=== PATIENT | female | born 1935 | race Caucasian/White ===

== ENCOUNTER 2020-03-27 18:17 | Inpatient (IN) ==
[2020-03-27] MEDS ORDERED: DILTIAZEM 50 MG/10 ML VIAL IV STA ×2 (18:37→19:22)
[2020-03-27] MEDS ORDERED: methylPREDNISolone SOD SUC 125 MG/2 ML VIAL IV STA (18:37)
[2020-03-27] MEDS ORDERED: ONDANSETRON 4 MG/2 ML VIAL IV STA (18:37)
[2020-03-27 18:42] LABS: Basophils % 0.3 % (0.0-0.8); Hematocrit 33.8 VOL% (35.7-47.0); Hemoglobin 11.2 GM/DL (12.0-16.0); Immature Granulocytes % 0.3 %; Immature Granulocytes Absolute 0.03 #; Lymphocytes # 2.1 10*3/uL (1.4-4.0); Lymphocytes % 23.7 % (21.3-54.2); Mean Corpuscular HGB Conc 33.1 GM/DL (32-36); Mean Corpuscular Volume 95.2 FL (87-102); Mean Platelet Volume 9.9 FL (9.6-12.0); Monocytes % 4.8 % (1.7-12.7); Neutrophils % 70.9 % (38.7-73.9); Platelet Count 340 T/CUMM (130-400); Red Blood Count 3.55 MC/CUMM (3.8-5.5); White Blood Count 8.8 T/CUMM (4-12)
[2020-03-27 18:53] LABS: INR 1.1; PT Patient Result 11.3 SECS (9.8-11.9); Partial Thromboplastin Time 28.9 SECS (23.9-33.8)
[2020-03-27] MEDS ORDERED: dilTIAZem Drip 125 MG/125 ML PREMIX IV SCH (19:00)
[2020-03-27] MEDS ORDERED: FUROSEMIDE 40 MG/4 ML VIAL IV STA (19:15)
[2020-03-27 19:24] LABS: Albumin 3.7 G/DL (3.4-5.0); Calcium 8.7 MG/DL (8.5-10.1); Osmolality,Calculated 283.4 MOS/KG (273-304); Total Protein 7.3 G/DL (6.4-8.3)
[2020-03-27 19:41] LABS: Bacteria,Urine Occasional /HPF (Few); Bilirubin,Urine Negative (Negative); Blood, Urine Negative (Negative); Glucose,Urine (UA) Negative (Negative); Hyaline Casts,Urine 1 /LPF (0-3); Ketones,Urine Negative (Negative); Nitrite,Urine Negative (Negative); Protein,Urine Negative; RBC,Urine 2 /HPF (0-4); Squamous Epithelial Cell,Urine Occasional /HPF (0-10); Urine Appearance CLEAR (Clear); Urine Color Straw (Yellow); Urine Specific Gravity 1.005 (1.001-1.035); Urine Urobilinogen < 2.0 EU/DL (0.2-1.0); WBC,Urine 4 /HPF (0-6)
[2020-03-27] MEDS ORDERED: cefTRIAXone 1,000 MG in SODIUM CHLORIDE 0.9% 100 ML IV STA (19:42)
[2020-03-27] MEDS ORDERED: METOPROLOL TARTRATE 5 MG/5 ML VIAL IV STA (20:21)
[2020-03-27] MEDS ORDERED: DEXTROSE 50% 25 GM/50 ML VIAL IV PRN (20:53)
[2020-03-27] MEDS ORDERED: hydrALAZINE 20 MG/1 ML VIAL IV PRN (20:53)
[2020-03-27] MEDS ORDERED: guaiFENesin/DM ER 600-30 MG TABLET PO PRN (20:53)
[2020-03-27] MEDS ORDERED: MORPHINE 4 MG/1 ML VIAL IV PRN (20:53)
[2020-03-27] MEDS ORDERED: NICOTINE 21 MG/24 HR PATCH TRANSDERM PRN (20:53)
[2020-03-27] MEDS ORDERED: ONDANSETRON 4 MG/2 ML VIAL IV PRN (20:53)
[2020-03-27] MEDS ORDERED: GLUCAGON 1 MG VIAL IM PRN (20:53)
[2020-03-27] MEDS ORDERED: ALUMINUM/MAGNES/SIMETH MAX STR 30 ML UDCUP PO PRN (20:53)
[2020-03-27] MEDS ORDERED: diphenhydrAMINE CAP 25 MG CAPSULE PO PRN (20:53)
[2020-03-27] MEDS ORDERED: ACETAMINOPHEN 325 MG TABLET PO PRN (20:53)
[2020-03-27 21:22] LABS: Risk Ratio 2.69; Thyroid Stimulating Hormone 0.094 uIU/ml (0.358-3.74); VLDL CHOLESTEROL 28.2 MG/DL
[2020-03-27] MEDS: INSULIN REGULAR 100 UNIT/ML SUBCUT SCH (23:05)
[2020-03-28] MEDS ORDERED: dilTIAZem Drip 125 MG/125 ML PREMIX IV SCH ×2 (01:30)
[2020-03-28] MEDS: ALBUTEROL/IPRATROPIUM 3 ML NEB RESP TX SCH ×2 (02:00→07:15)
[2020-03-28] MEDS: dilTIAZem Drip 125 MG/125 ML PREMIX IV SCH (04:41)
[2020-03-28 04:55] LABS: Basophils % 0.1 % (0.0-0.8); Hemoglobin 10.7 GM/DL (12.0-16.0); Immature Granulocytes % 0.5 %; Immature Granulocytes Absolute 0.05 #; Lymphocytes # 0.6 10*3/uL (1.4-4.0); Lymphocytes % 6.3 % (21.3-54.2); Mean Corpuscular HGB Conc 33.4 GM/DL (32-36); Mean Corpuscular Volume 93.6 FL (87-102); Mean Platelet Volume 10.5 FL (9.6-12.0); Monocytes % 0.8 % (1.7-12.7); Neutrophils % 92.3 % (38.7-73.9); Platelet Count 323 T/CUMM (130-400); Red Blood Count 3.42 MC/CUMM (3.8-5.5); Red Cell Distribution Width 13.2 % (9.3-17.3); White Blood Count 9.5 T/CUMM (4-12)
[2020-03-28 05:08] LABS: Albumin 3.6 G/DL (3.4-5.0); Bilirubin,Total 0.8 MG/DL (0.2-1.0); Calcium 8.9 MG/DL (8.5-10.1); Osmolality,Calculated 284.5 MOS/KG (273-304); Total Protein 7.2 G/DL (6.4-8.3)
[2020-03-28 05:20] LABS: Band Neutrophils 1 % (0-10); Lymphocytes 7 % (20-55); Platelet Estimate Adequate; Segmented Neutrophils 91 % (50-85); Total Cells Counted 100
[2020-03-28 05:21] LABS: Hypochromasia 1+; Microcytosis Slight
[2020-03-28] MEDS ORDERED: APIXABAN 2.5 MG TABLET PO SCH (09:00)
[2020-03-28] MEDS ORDERED: FUROSEMIDE 20 MG/2 ML VIAL IV SCH (09:00)
[2020-03-28] MEDS ORDERED: LEVOTHYROXINE 150 MCG TABLET PO SCH (10:30)
[2020-03-28] MEDS ORDERED: carvediloL 12.5 MG TABLET PO SCH (10:30)
[2020-03-28] MEDS: ESCITALOPRAM 10 MG TABLET PO SCH (12:50)
[2020-03-28] MEDS: SUCRALFATE 1 GM TABLET PO SCH ×3 (12:50→21:35)
[2020-03-28] MEDS: POTASSIUM CHLORIDE 10 MEQ TABLET PO SCH (12:50)
[2020-03-28] MEDS: PANTOPRAZOLE 40 MG TABLET PO SCH ×2 (12:50→21:35)
[2020-03-28] MEDS: FERROUS SULFATE 325 MG TABLET PO SCH ×2 (12:51→16:48)
[2020-03-28] MEDS: FUROSEMIDE 40 MG/4 ML VIAL IV SCH ×3 (15:01→17:05)
[2020-03-28] MEDS ORDERED: INFLUENZA VIRUS VACCINE 0.5 ML SYRINGE IM ONE (15:55)
[2020-03-28] MEDS: INSULIN REGULAR 100 UNIT/ML SUBCUT SCH ×3 (17:05→21:34)
[2020-03-28] MEDS ORDERED: cefTRIAXone 1,000 MG in SYRINGE 1 EACH IV SCH (21:00)
[2020-03-28] MEDS: carvediloL 25 MG TABLET PO SCH (21:35)
[2020-03-28] MEDS: ATORVASTATIN 40 MG TABLET PO SCH (21:35)
[2020-03-28] MEDS: traZODone 50 MG TABLET PO SCH (21:35)
[2020-03-29] MEDS ORDERED: DILTIAZEM CD 180 MG CAPSULE PO ONE (07:57)
[2020-03-29] MEDS: INSULIN REGULAR 100 UNIT/ML SUBCUT SCH ×4 (08:00→20:47)
[2020-03-29] MEDS: FERROUS SULFATE 325 MG TABLET PO SCH ×3 (08:40→17:45)
[2020-03-29] MEDS: POTASSIUM CHLORIDE 10 MEQ TABLET PO SCH (08:40)
[2020-03-29] MEDS: SUCRALFATE 1 GM TABLET PO SCH ×4 (08:40→20:47)
[2020-03-29] MEDS: ESCITALOPRAM 10 MG TABLET PO SCH (08:40)
[2020-03-29] MEDS: carvediloL 25 MG TABLET PO SCH ×3 (08:40→20:47)
[2020-03-29] MEDS: FUROSEMIDE 40 MG/4 ML VIAL IV SCH (08:40)
[2020-03-29] MEDS: PANTOPRAZOLE 40 MG TABLET PO SCH ×2 (08:40→20:47)
[2020-03-29] MEDS ORDERED: ENOXAPARIN 80 MG/0.8 ML SYRINGE SUBCUT ONE (08:53)
[2020-03-29] MEDS ORDERED: DIGOXIN 0.5 MG/2 ML AMP IV ONE (12:16)
[2020-03-29 13:56] LABS: Calcium 8.5 MG/DL (8.5-10.1); Osmolality,Calculated 286.8 MOS/KG (273-304)
[2020-03-29] MEDS: dilTIAZem Drip 125 MG/125 ML PREMIX IV SCH (16:28)
[2020-03-29] MEDS: ATORVASTATIN 40 MG TABLET PO SCH (20:46)
[2020-03-29] MEDS: DILTIAZEM CD 120 MG CAPSULE PO SCH (20:46)
[2020-03-29] MEDS: traZODone 50 MG TABLET PO SCH (20:47)
[2020-03-30 05:47] LABS: Basophils % 0.3 % (0.0-0.8); Hematocrit 28.9 VOL% (35.7-47.0); Hemoglobin 9.3 GM/DL (12.0-16.0); Immature Granulocytes % 0.3 %; Immature Granulocytes Absolute 0.02 #; Lymphocytes # 2.4 10*3/uL (1.4-4.0); Lymphocytes % 38.2 % (21.3-54.2); Mean Corpuscular HGB Conc 32.2 GM/DL (32-36); Mean Platelet Volume 10.5 FL (9.6-12.0); Monocytes % 5.8 % (1.7-12.7); Neutrophils % 55.4 % (38.7-73.9); Platelet Count 297 T/CUMM (130-400); Red Blood Count 3.01 MC/CUMM (3.8-5.5); Red Cell Distribution Width 13.2 % (9.3-17.3); White Blood Count 6.4 T/CUMM (4-12)
[2020-03-30 06:21] LABS: Calcium 8.4 MG/DL (8.5-10.1); Osmolality,Calculated 290.7 MOS/KG (273-304)
[2020-03-30] MEDS ORDERED: SODIUM CHLORIDE 0.9% 500 ML IV ONE (07:57)
[2020-03-30] MEDS ORDERED: POTASSIUM CHLORIDE 20 MEQ TABLET PO ONE (07:57)
[2020-03-30 08:17] VITALS: BP 132/51
[2020-03-30] MEDS: INSULIN REGULAR 100 UNIT/ML SUBCUT SCH (08:33)
[2020-03-30] MEDS ORDERED: METOPROLOL TARTRATE 25 MG TABLET PO SCH (09:00)
[2020-03-30] MEDS: SUCRALFATE 1 GM TABLET PO SCH (09:24)
[2020-03-30] MEDS: FERROUS SULFATE 325 MG TABLET PO SCH (09:24)
[2020-03-30] MEDS: DILTIAZEM CD 120 MG CAPSULE PO SCH (09:25)
[2020-03-30] MEDS: POTASSIUM CHLORIDE 10 MEQ TABLET PO SCH (09:25)
[2020-03-30] MEDS: ESCITALOPRAM 10 MG TABLET PO SCH (09:25)
[2020-03-30] MEDS: PANTOPRAZOLE 40 MG TABLET PO SCH (09:25)
[2020-03-30] MEDS ORDERED: ASPIRIN EC 81 MG TABLET PO SCH (09:30)
== END 2020-03-30 11:48 | disposition home health service (06) | DRG 291 ==
LOC: N.ED 18:17 → SUATTDRO 20:58 → N.EDINP 20:58 → N.TELEN 03-28 15:29
PROVIDERS: ADMIT Internal Medicine; ATTEND Emergency Medicine

== ENCOUNTER 2020-11-21 11:43 | Inpatient (IN) ==
[2020-11-21 12:41] LABS: Basophils % 0.2 % (0.0-0.8); Hematocrit 39.4 VOL% (35.7-47.0); Hemoglobin 13.2 GM/DL (12.0-16.0); Immature Granulocytes % 0.2 %; Immature Granulocytes Absolute 0.02 #; Lymphocytes # 1.4 10*3/uL (1.4-4.0); Lymphocytes % 17.1 % (21.3-54.2); Mean Corpuscular HGB Conc 33.5 GM/DL (32-36); Mean Corpuscular Volume 91.8 FL (87-102); Mean Platelet Volume 9.9 FL (9.6-12.0); Monocytes % 5.6 % (1.7-12.7); Neutrophils % 76.9 % (38.7-73.9); Platelet Count 285 T/CUMM (130-400); Red Blood Count 4.29 MC/CUMM (3.8-5.5); Red Cell Distribution Width 13.2 % (9.3-17.3); White Blood Count 8.1 T/CUMM (4-12)
[2020-11-21 12:43] LABS: Bilirubin,Urine Negative (Negative); Blood, Urine Small mg/dL (Negative); Glucose,Urine (UA) Negative (Negative); Hyaline Casts,Urine 4 /LPF (0-3); Ketones,Urine Negative (Negative); Nitrite,Urine Negative (Negative); Protein,Urine 30 MG/DL; RBC,Urine 1 /HPF (0-4); Urine Appearance CLEAR (Clear); Urine Color Straw (Yellow); Urine Specific Gravity 1.006 (1.001-1.035); Urine Urobilinogen < 2.0 EU/DL (0.2-1.0)
[2020-11-21 12:52] LABS: PT Patient Result 10.9 SECS (10.5-12.0); Partial Thromboplastin Time 29.9 SECS (23.9-33.8)
[2020-11-21 13:02] LABS: Barbiturates Screen,Urine Negative (Negative); Benzodiazepines Screen,Urine Negative (Negative); Cannabinoid Screen,Urine Negative (Negative); Opiate Screen,Urine Positive (Negative); Phencyclidine Screen,Urine Negative (Negative)
[2020-11-21 13:23] LABS: Bilirubin,Total 0.6 MG/DL (0.2-1.0); Calcium 9.3 MG/DL (8.5-10.1); Osmolality,Calculated 276.1 MOS/KG (273-304); Potassium 4.6 MMOL/L (3.5-5.1); Thyroid Stimulating Hormone 0.149 uIU/ml (0.358-3.74); Total Protein 8.1 G/DL (6.4-8.2)
[2020-11-21] MEDS ORDERED: ONDANSETRON 4 MG/2 ML VIAL IV PRN (14:43)
[2020-11-21] MEDS ORDERED: ACETAMINOPHEN 325 MG TABLET PO PRN (14:43)
[2020-11-21] MEDS ORDERED: DOCUSATE SODIUM 100 MG CAPSULE PO PRN (14:43)
[2020-11-21] MEDS ORDERED: DEXTROSE 50% 25 GM/50 ML VIAL IV PRN ×2 (14:43→14:48)
[2020-11-21] MEDS ORDERED: GLUCAGON 1 MG VIAL IM PRN (14:43)
[2020-11-21] MEDS: cefTRIAXone 1,000 MG in SODIUM CHLORIDE 0.9% 100 ML IV SCH (14:56)
[2020-11-21] MEDS ORDERED: ENOXAPARIN 40 MG/0.4 ML SYRINGE SUBCUT SCH (15:00)
[2020-11-21] MEDS: AZITHROMYCIN INJ 250 MG in SODIUM CHLORIDE 0.9% 250 ML IV SCH (17:58)
[2020-11-21] MEDS: INSULIN REGULAR 100 UNIT/ML SUBCUT SCH ×2 (18:06→21:56)
[2020-11-21] MEDS: SUCRALFATE 1 GM TABLET PO SCH ×2 (18:09→21:50)
[2020-11-21] MEDS: ALBUTEROL 2.5 MG/3 ML NEB RESP TX SCH (19:07)
[2020-11-21] MEDS: DILTIAZEM CD 120 MG CAPSULE PO SCH (21:50)
[2020-11-21] MEDS: METOPROLOL TARTRATE 25 MG TABLET PO SCH (21:51)
[2020-11-21] MEDS: PANTOPRAZOLE 40 MG TABLET PO SCH (21:55)
[2020-11-21] MEDS: ATORVASTATIN 40 MG TABLET PO SCH (21:58)
[2020-11-22] MEDS: ALBUTEROL 2.5 MG/3 ML NEB RESP TX SCH ×4 (00:20→19:52)
[2020-11-22 05:19] LABS: Basophils % 0.5 % (0.0-0.8); Hematocrit 36.7 VOL% (35.7-47.0); Hemoglobin 12.8 GM/DL (12.0-16.0); Immature Granulocytes % 0.3 %; Immature Granulocytes Absolute 0.03 #; Lymphocytes # 1.6 10*3/uL (1.4-4.0); Lymphocytes % 18.1 % (21.3-54.2); Mean Corpuscular HGB Conc 34.9 GM/DL (32-36); Mean Platelet Volume 10.5 FL (9.6-12.0); Monocytes % 5.7 % (1.7-12.7); Neutrophils % 75.4 % (38.7-73.9); Platelet Count 266 T/CUMM (130-400); Red Blood Count 4.08 MC/CUMM (3.8-5.5); Red Cell Distribution Width 12.9 % (9.3-17.3); White Blood Count 8.6 T/CUMM (4-12)
[2020-11-22 05:42] LABS: Calcium 9.3 MG/DL (8.5-10.1); Osmolality,Calculated 279.7 MOS/KG (273-304); Potassium 3.8 MMOL/L (3.5-5.1)
[2020-11-22] MEDS: LEVOTHYROXINE 50 MCG TABLET PO SCH (05:57)
[2020-11-22] MEDS: SUCRALFATE 1 GM TABLET PO SCH ×4 (07:34→20:59)
[2020-11-22] MEDS ORDERED: FUROSEMIDE 40 MG TABLET PO SCH (09:00)
[2020-11-22] MEDS ORDERED: ASPIRIN EC 81 MG TABLET PO SCH (09:00)
[2020-11-22] MEDS ORDERED: POTASSIUM CHLORIDE 10 MEQ TABLET PO SCH (09:00)
[2020-11-22] MEDS: INSULIN REGULAR 100 UNIT/ML SUBCUT SCH ×4 (09:07→21:51)
[2020-11-22] MEDS: PANTOPRAZOLE 40 MG TABLET PO SCH ×2 (11:02→20:59)
[2020-11-22] MEDS: DILTIAZEM CD 120 MG CAPSULE PO SCH ×2 (11:02→20:59)
[2020-11-22] MEDS: METOPROLOL TARTRATE 25 MG TABLET PO SCH ×2 (11:03→20:59)
[2020-11-22] MEDS: INSULIN GLARGINE 100 UNIT/ML SUBCUT SCH (11:06)
[2020-11-22] MEDS: CLOPIDOGREL 75 MG TABLET PO SCH (16:36)
[2020-11-22] MEDS: cefTRIAXone 1,000 MG in SODIUM CHLORIDE 0.9% 100 ML IV SCH (16:40)
[2020-11-22] MEDS: AZITHROMYCIN INJ 250 MG in SODIUM CHLORIDE 0.9% 250 ML IV SCH ×2 (18:30→19:09)
[2020-11-22] MEDS: ATORVASTATIN 40 MG TABLET PO SCH (20:59)
[2020-11-23] MEDS: ALBUTEROL 2.5 MG/3 ML NEB RESP TX SCH ×4 (01:17→20:07)
[2020-11-23 04:30] LABS: Basophils % 0.2 % (0.0-0.8); Hematocrit 39.1 VOL% (35.7-47.0); Hemoglobin 13.4 GM/DL (12.0-16.0); Immature Granulocytes % 0.9 %; Immature Granulocytes Absolute 0.09 #; Lymphocytes # 2.2 10*3/uL (1.4-4.0); Lymphocytes % 21.9 % (21.3-54.2); Mean Corpuscular HGB Conc 34.3 GM/DL (32-36); Mean Corpuscular Volume 89.5 FL (87-102); Mean Platelet Volume 10.1 FL (9.6-12.0); Monocytes % 7.9 % (1.7-12.7); Neutrophils % 69.1 % (38.7-73.9); Platelet Count 281 T/CUMM (130-400); Red Blood Count 4.37 MC/CUMM (3.8-5.5); Red Cell Distribution Width 12.7 % (9.3-17.3); White Blood Count 9.9 T/CUMM (4-12)
[2020-11-23 04:46] LABS: Calcium 9.2 MG/DL (8.5-10.1); Osmolality,Calculated 278.7 MOS/KG (273-304); Potassium 3.4 MMOL/L (3.5-5.1)
[2020-11-23] MEDS: LEVOTHYROXINE 50 MCG TABLET PO SCH ×2 (06:25→08:25)
[2020-11-23] MEDS: cefTRIAXone 1,000 MG in SODIUM CHLORIDE 0.9% 100 ML IV SCH (08:25)
[2020-11-23] MEDS: PANTOPRAZOLE 40 MG TABLET PO SCH ×2 (08:25→21:42)
[2020-11-23] MEDS: SUCRALFATE 1 GM TABLET PO SCH ×4 (08:25→21:42)
[2020-11-23] MEDS: CLOPIDOGREL 75 MG TABLET PO SCH (08:25)
[2020-11-23] MEDS: METOPROLOL TARTRATE 25 MG TABLET PO SCH ×2 (08:26→21:42)
[2020-11-23] MEDS: INSULIN REGULAR 100 UNIT/ML SUBCUT SCH ×4 (08:26→21:43)
[2020-11-23] MEDS: INSULIN GLARGINE 100 UNIT/ML SUBCUT SCH (08:27)
[2020-11-23] MEDS: DILTIAZEM CD 120 MG CAPSULE PO SCH ×2 (08:33→21:42)
[2020-11-23] MEDS: ASPIRIN EC 81 MG TABLET PO SCH (10:32)
[2020-11-23] MEDS ORDERED: POTASSIUM CHLORIDE 20 MEQ TABLET PO ONE (11:41)
[2020-11-23] MEDS: AZITHROMYCIN INJ 250 MG in SODIUM CHLORIDE 0.9% 250 ML IV SCH (18:04)
[2020-11-23] MEDS: ATORVASTATIN 40 MG TABLET PO SCH (21:43)
[2020-11-24] MEDS: ALBUTEROL 2.5 MG/3 ML NEB RESP TX SCH ×2 (00:35→07:07)
[2020-11-24 04:53] LABS: Basophils % 0.2 % (0.0-0.8); Hematocrit 39.6 VOL% (35.7-47.0); Hemoglobin 13.4 GM/DL (12.0-16.0); Immature Granulocytes % 0.4 %; Immature Granulocytes Absolute 0.03 #; Lymphocytes # 1.8 10*3/uL (1.4-4.0); Lymphocytes % 20.9 % (21.3-54.2); Mean Corpuscular HGB Conc 33.8 GM/DL (32-36); Mean Corpuscular Volume 89.6 FL (87-102); Mean Platelet Volume 10.2 FL (9.6-12.0); Monocytes % 8.1 % (1.7-12.7); Neutrophils % 70.4 % (38.7-73.9); Platelet Count 257 T/CUMM (130-400); Red Blood Count 4.42 MC/CUMM (3.8-5.5); Red Cell Distribution Width 12.8 % (9.3-17.3); White Blood Count 8.5 T/CUMM (4-12)
[2020-11-24] MEDS: LEVOTHYROXINE 50 MCG TABLET PO SCH (05:53)
[2020-11-24 05:55] LABS: Calcium 9.3 MG/DL (8.5-10.1); Osmolality,Calculated 280.5 MOS/KG (273-304); Potassium 3.4 MMOL/L (3.5-5.1)
[2020-11-24 08:11] VITALS: BP 130/67
[2020-11-24] MEDS: INSULIN REGULAR 100 UNIT/ML SUBCUT SCH (08:18)
[2020-11-24] MEDS: cefTRIAXone 1,000 MG in SODIUM CHLORIDE 0.9% 100 ML IV SCH (08:46)
[2020-11-24] MEDS: METOPROLOL TARTRATE 25 MG TABLET PO SCH (08:47)
[2020-11-24] MEDS: ASPIRIN EC 81 MG TABLET PO SCH (08:47)
[2020-11-24] MEDS: SUCRALFATE 1 GM TABLET PO SCH (08:47)
[2020-11-24] MEDS: INSULIN GLARGINE 100 UNIT/ML SUBCUT SCH (08:47)
[2020-11-24] MEDS: DILTIAZEM CD 120 MG CAPSULE PO SCH (08:47)
[2020-11-24] MEDS: PANTOPRAZOLE 40 MG TABLET PO SCH (08:48)
[2020-11-24] MEDS: CLOPIDOGREL 75 MG TABLET PO SCH (08:48)
== END 2020-11-24 10:50 | disposition home health service (06) | DRG 64 ==
LOC: N.ED 11:43 → N.EDINP 11:43 → SUATTDRO 14:31 → N.EDINP 16:00 → N.4E 16:52
PROVIDERS: ADMIT Hospitalist; ATTEND Emergency Medicine